=== PATIENT | female | born 1935 | race Caucasian/White ===

== ENCOUNTER 2018-06-18 19:39 | Inpatient (IN) | payer OTHER, MEDICAID ==
[~2018-06-18] VITALS: Ht 160 cm; Wt 68.2 kg
[2018-06-18 19:48] VITALS: BP_SYST 114
[2018-06-18] MEDS ORDERED: NACL 0.9% 1,000 ML IV ONE (19:57)
[2018-06-18 20:32] LABS: ANION GAP 11 (5-15); CALCIUM 9.5 mg/dL (8.4-11.0); CHLORIDE 100 mmol/L (98-107); CREATININE 0.99 mg/dL (0.55-1.30); GLUCOSE 110 mg/dL (70-99); POTASSIUM 3.6 mmol/L (3.5-5.1); SODIUM SERUM 143 mmol/L (136-145); UREA NITROGEN, BLOOD 22 mg/dL (8-21)
[2018-06-18 20:34] LABS: WHITE BLOOD COUNT (AUTO) 11.7 K/uL (4.8-10.8)
[2018-06-18 20:35] LABS: HEMATOCRIT 40.9 % (36-48); HEMOGLOBIN 13.2 g/dL (12.0-16.0); LYMPHOCYTES % (AUTO) 22.1 % (20.5-51.5); MEAN CORPUSCULAR HEMOGLOBIN 28 pg (27-31); MEAN CORPUSCULAR HGB CONC 32 % (32-36); MEAN CORPUSCULAR VOLUME 88 fL (79.0-98.0); PLATELET COUNT (AUTO) 279 K/uL (130-430); RED BLOOD CELL COUNT(AUTO) 4.67 MIL/uL (4.2-6.2); RED CELL DISTRIBUTION WIDTH 18.8 % (9.0-15.0)
[2018-06-18 20:36] LABS: BASOPHILS # (AUTO) 0.1 K/uL (0.0-0.2); BASOPHILS % (AUTO) 0.7 % (0.0-2.0); EOSINOPHILS # (AUTO) 0.2 K/uL (0.0-0.4); EOSINOPHILS % (AUTO) 1.9 % (0.0-4.0); LYMPHOCYTES # (AUTO) 2.6 K/uL (1.0-5.5); MONOCYTES # (AUTO) 0.6 K/uL (0.0-1.0); MONOCYTES % (AUTO) 5.3 % (1.7-9.3); NEUTROPHILS # (AUTO) 8.2 K/uL (1.8-7.7)
[2018-06-18 20:37] LABS: ALANINE AMINOTRANSFERASE 22 U/L (12-78); ALBUMIN 3.2 g/dL (3.4-4.8); ASPARTATE AMINOTRANSFERASE 19 U/L (10-37); TOTAL BILIRUBIN 0.5 mg/dL (0.0-1.0)
[2018-06-18] MEDS ORDERED: ALEN70TA3 PO (21:25)
[2018-06-18] MEDS ORDERED: ASPI-1153 PO (21:26)
[2018-06-18] MEDS ORDERED: ATOR20TA64 PO (21:27)
[2018-06-18] MEDS ORDERED: CRAN250T2 PO (21:28)
[2018-06-18] MEDS ORDERED: DIGO-31 PO (21:28)
[2018-06-18] MEDS ORDERED: LEVO137T2 PO (21:30)
[2018-06-18] MEDS ORDERED: ENAL2.5T PO (21:30)
[2018-06-18] MEDS ORDERED: POLY17PO4 PO (21:31)
[2018-06-18] MEDS ORDERED: RIVA15TA PO (21:34)
[2018-06-18] MEDS ORDERED: CARV3.1246 PO (21:36)
[2018-06-18 21:37] LABS: DIGOXIN 1.1 ng/mL (0.80-2.00); THYROID STIMULATING HORMONE 9.95 uIu/mL (0.34-4.82)
[2018-06-18] MEDS ORDERED: DOCU250C14 PO (21:37)
[2018-06-18] MEDS ORDERED: FURO-149 PO (21:37)
[2018-06-18 21:38] LABS: INR 1.5 (0.8-1.2); PROTHROMBIN TIME 15.1 SECS (9.5-12.5)
[2018-06-18] MEDS ORDERED: LEVE500T9 PO (21:39)
[2018-06-18] MEDS ORDERED: METF-833 PO (21:40)
[2018-06-18] MEDS ORDERED: CALC-939 PO (21:43)
[2018-06-18] MEDS ORDERED: RANI150T8 PO (21:46)
[2018-06-18 21:47] LABS: BILIRUBIN,URINE NEGATIVE (NEGATIVE); BLOOD, URINE NEGATIVE (NEGATIVE); CLARITY/URINE CLEAR (CLEAR); COLOR,URINE YELLOW (YELLOW); GLUCOSE,URINE NEGATIVE (NEGATIVE); KETONES,URINE NEGATIVE (NEGATIVE); LEUKOCYTE ESTERASE ,URINE NEGATIVE (NEGATIVE); NITRITE, URINE NEGATIVE (NEGATIVE); PROTEIN URINE NEGATIVE (NEGATIVE); UROBILINOGEN,URINE 0.2 (0.2-1.0)
[2018-06-18] MEDS ORDERED: WHEA98PO PO (21:47)
[2018-06-18] MEDS ORDERED: BISA10SU61 RC (21:48)
[2018-06-18] MEDS ORDERED: NA P133E41 RC (21:49)
[2018-06-18] MEDS ORDERED: MOM PO (21:50)
[2018-06-18] MEDS ORDERED: ACET325C3 PO (21:52)
[2018-06-18 21:54] LABS: BARBITURATE, URINE NEGATIVE (NEG <=200); BENZODIAZEPINE, URINE NEGATIVE (NEG <=150); CANNABINOID, URINE NEGATIVE (NEG <=50); COCAINE, URINE NEGATIVE (NEG <=150); METHAMPHETAMINES SCREEN,URINE NEGATIVE (NEG <=500); OPIATE, URINE NEGATIVE (NEG <=100); PHENCYCLIDINE SCREEN,URINE NEGATIVE (NEG <=25); UR TRICYCLIC ANTIDEPRESSANTS NEGATIVE (NEG <=300); URINE AMPHETAMINE NEGATIVE (NEG <=500); URINE METHADONE NEGATIVE (NEG <=200); URINE OXYCODONE SCREEN NEGATIVE (NEG <=100); URINE PROPOXYPHENE SCREEN NEGATIVE (NEG <=300)
[2018-06-18] MEDS ORDERED: MORPHINE 4 MG/ML INJ. SYRINGE IVP PRN ×2 (22:00)
[2018-06-18] MEDS ORDERED: ONDANSETRON HCL 4 MG/2 ML VIAL IVP PRN (22:00)
[2018-06-18] MEDS ORDERED: DEXTROSE 50% JECT 50 ML DISP.SYRIN IVP PRN (22:00)
[2018-06-18] MEDS ORDERED: LORazepam 2 MG/ML VIAL IVP PRN (22:00)
[2018-06-18] MEDS ORDERED: MUPIROCIN 2% TOPICAL OINTMENT 22 GM NS PRN (22:00)
[2018-06-18] MEDS ORDERED: DOCUSATE SODIUM 100 MG CAPSULE PO PRN (22:00)
[2018-06-18] MEDS ORDERED: ACETAMINOPHEN 325 MG TABLET PO PRN (22:00)
[2018-06-18 22:11] LABS: RBC,URINE NONE SEEN /HPF (0-3); WBC,URINE 0-3 /HPF (0-3)
[2018-06-18 22:12] LABS: BACTERIA,URINE FEW /HPF (None Seen)
[2018-06-18 22:13] LABS: FINE GRANULAR CASTS,URINE 0-10 /LPF (None Seen); HYALINE CASTS, URINE 0-10 /LPF (None Seen); MUCUS,URINE None Seen /LPF (None Seen)
[2018-06-18 22:45] VITALS: BP_SYST 138
[2018-06-18] MEDS: D5NS 1,000 ML IV SCH (23:50)
[2018-06-19 00:07] VITALS: BP_SYST 138
[2018-06-19 06:41] LABS: ANION GAP 8 (5-15); CHLORIDE 103 mmol/L (98-107); CREATININE 0.83 mg/dL (0.55-1.30); GLUCOSE 157 mg/dL (70-99); POTASSIUM 3.2 mmol/L (3.5-5.1); SODIUM SERUM 145 mmol/L (136-145); UREA NITROGEN, BLOOD 18 mg/dL (8-21)
[2018-06-19] MEDS: LEVOTHYROXINE SODIUM 0.137 MG TABLET PO SCH (07:00)
[2018-06-19 07:02] LABS: HEMATOCRIT 38.9 % (36-48); HEMOGLOBIN 12.4 g/dL (12.0-16.0); MEAN CORPUSCULAR HEMOGLOBIN 28 pg (27-31); MEAN CORPUSCULAR HGB CONC 32 % (32-36); MEAN CORPUSCULAR VOLUME 88 fL (79.0-98.0); RED BLOOD CELL COUNT(AUTO) 4.43 MIL/uL (4.2-6.2); RED CELL DISTRIBUTION WIDTH 18.5 % (9.0-15.0); WHITE BLOOD COUNT (AUTO) 10.8 K/uL (4.8-10.8)
[2018-06-19 07:03] LABS: BASOPHILS % (AUTO) 0.4 % (0.0-2.0); EOSINOPHILS # (AUTO) 0.2 K/uL (0.0-0.4); EOSINOPHILS % (AUTO) 1.9 % (0.0-4.0); LYMPHOCYTES % (AUTO) 18.1 % (20.5-51.5); MONOCYTES # (AUTO) 0.7 K/uL (0.0-1.0); MONOCYTES % (AUTO) 6.7 % (1.7-9.3); NEUTROPHILS # (AUTO) 7.9 K/uL (1.8-7.7); NEUTROPHILS % (AUTO) 72.9 % (40.0-70.0); PLATELET COUNT (AUTO) 266 K/uL (130-430)
[2018-06-19 08:16] VITALS: BP_SYST 156
[2018-06-19] MEDS: POTASSIUM CHLORIDE 20 MEQ TAB.PRT.SR PO PRN (08:27)
[2018-06-19] MEDS: levETIRAcetam 500 MG TABLET PO SCH ×2 (08:27→21:03)
[2018-06-19] MEDS: DIGOXIN 0.125 MG TABLET PO SCH (08:28)
[2018-06-19] MEDS: ASPIRIN 81 MG TABLET(ECOTRIN) PO SCH (08:28)
[2018-06-19] MEDS: RIVAROXABAN 15 MG TABLET PO SCH (08:29)
[2018-06-19] MEDS ORDERED: LEVETIRACETAM PO SCH (09:00)
[2018-06-19] MEDS: MAGNESIUM SULFATE 50 ML IV PRN (10:19)
[2018-06-19] MEDS: D5NS 1,000 ML IV SCH ×2 (11:32→15:06)
[2018-06-19 12:11] VITALS: BP_SYST 145
[2018-06-19] MEDS: INSULIN LISPRO SLIDING SCALE 100 UNITS/ML VIAL (humaLOG) SUBCUT PRN ×2 (16:37→21:08)
[2018-06-19 16:47] VITALS: BP_SYST 147
[2018-06-19 20:00] VITALS: BP_SYST 150
[2018-06-19] MEDS: ATORVASTATIN 20 MG TABLET PO SCH (21:03)
[2018-06-20 00:04] VITALS: BP_SYST 143
[2018-06-20] MEDS: D5NS 1,000 ML IV SCH ×2 (05:10→17:00)
[2018-06-20] MEDS: LEVOTHYROXINE SODIUM 0.137 MG TABLET PO SCH (06:01)
[2018-06-20] MEDS: INSULIN LISPRO SLIDING SCALE 100 UNITS/ML VIAL (humaLOG) SUBCUT PRN ×4 (06:03→21:43)
[2018-06-20 07:47] LABS: HEMOGLOBIN 12.7 g/dL (12.0-16.0); RED BLOOD CELL COUNT(AUTO) 4.49 MIL/uL (4.2-6.2); WHITE BLOOD COUNT (AUTO) 11.5 K/uL (4.8-10.8)
[2018-06-20 07:48] LABS: BASOPHILS % (AUTO) 0.4 % (0.0-2.0); EOSINOPHILS # (AUTO) 0.2 K/uL (0.0-0.4); EOSINOPHILS % (AUTO) 1.8 % (0.0-4.0); HEMATOCRIT 39.1 % (36-48); LYMPHOCYTES # (AUTO) 1.4 K/uL (1.0-5.5); MEAN CORPUSCULAR HEMOGLOBIN 28 pg (27-31); MEAN CORPUSCULAR HGB CONC 32 % (32-36); MEAN CORPUSCULAR VOLUME 87 fL (79.0-98.0); MONOCYTES # (AUTO) 0.7 K/uL (0.0-1.0); MONOCYTES % (AUTO) 6.5 % (1.7-9.3); NEUTROPHILS # (AUTO) 9.1 K/uL (1.8-7.7); NEUTROPHILS % (AUTO) 79.3 % (40.0-70.0); PLATELET COUNT (AUTO) 291 K/uL (130-430); RED CELL DISTRIBUTION WIDTH 18.6 % (9.0-15.0)
[2018-06-20 08:08] LABS: ANION GAP 9 (5-15); CALCIUM 8.7 mg/dL (8.4-11.0); CHLORIDE 104 mmol/L (98-107); CREATININE 0.67 mg/dL (0.55-1.30); GLUCOSE 184 mg/dL (70-99); POTASSIUM 3.3 mmol/L (3.5-5.1); SODIUM SERUM 143 mmol/L (136-145); UREA NITROGEN, BLOOD 9 mg/dL (8-21)
[2018-06-20] MEDS: POTASSIUM CHLORIDE 20 MEQ TAB.PRT.SR PO PRN (08:24)
[2018-06-20] MEDS: ASPIRIN 81 MG TABLET(ECOTRIN) PO SCH (08:24)
[2018-06-20] MEDS: RIVAROXABAN 15 MG TABLET PO SCH (08:24)
[2018-06-20] MEDS: levETIRAcetam 500 MG TABLET PO SCH ×2 (08:25→21:40)
[2018-06-20] MEDS: MAGNESIUM SULFATE 50 ML IV PRN (08:31)
[2018-06-20] MEDS: DIGOXIN 0.125 MG TABLET PO SCH (08:31)
[2018-06-20 08:38] VITALS: BP_SYST 146
[2018-06-20] MEDS: CARVEDILOL 12.5 MG TABLET (COREG) PO SCH ×2 (11:30→21:40)
[2018-06-20 12:05] VITALS: BP_SYST 137
[2018-06-20 17:12] VITALS: BP_SYST 125
[2018-06-20 20:00] VITALS: BP_SYST 148
[2018-06-20] MEDS: ATORVASTATIN 20 MG TABLET PO SCH (21:40)
[2018-06-20 23:13] VITALS: BP_SYST 116
[2018-06-21] MEDS ORDERED: LEVOTHYROXINE SODIUM 0.15 MG TABLET PO SCH (07:00)
[2018-06-21 07:40] LABS: ANION GAP 9 (5-15); CALCIUM 7.9 mg/dL (8.4-11.0); CHLORIDE 108 mmol/L (98-107); GLUCOSE 175 mg/dL (70-99); POTASSIUM 3.9 mmol/L (3.5-5.1); SODIUM SERUM 144 mmol/L (136-145); UREA NITROGEN, BLOOD 11 mg/dL (8-21)
[2018-06-21 08:20] LABS: HEMATOCRIT 34.7 % (36-48); HEMOGLOBIN 11.1 g/dL (12.0-16.0); MEAN CORPUSCULAR HEMOGLOBIN 28 pg (27-31); MEAN CORPUSCULAR HGB CONC 32 % (32-36); MEAN CORPUSCULAR VOLUME 88 fL (79.0-98.0); PLATELET COUNT (AUTO) 267 K/uL (130-430); RED BLOOD CELL COUNT(AUTO) 3.95 MIL/uL (4.2-6.2); RED CELL DISTRIBUTION WIDTH 18.7 % (9.0-15.0); WHITE BLOOD COUNT (AUTO) 11.1 K/uL (4.8-10.8)
[2018-06-21 08:21] LABS: BASOPHILS % (AUTO) 0.3 % (0.0-2.0); EOSINOPHILS # (AUTO) 0.2 K/uL (0.0-0.4); LYMPHOCYTES # (AUTO) 1.6 K/uL (1.0-5.5); LYMPHOCYTES % (AUTO) 14.6 % (20.5-51.5); MONOCYTES # (AUTO) 0.8 K/uL (0.0-1.0); MONOCYTES % (AUTO) 6.9 % (1.7-9.3); NEUTROPHILS # (AUTO) 8.5 K/uL (1.8-7.7); NEUTROPHILS % (AUTO) 76.2 % (40.0-70.0)
[2018-06-21 12:00] VITALS: BP_SYST 145
[2018-06-21] MEDS: INSULIN LISPRO SLIDING SCALE 100 UNITS/ML VIAL (humaLOG) SUBCUT PRN ×2 (13:14→18:11)
[2018-06-21 15:50] VITALS: BP_SYST 147
[2018-06-21 16:37] VITALS: BP_SYST 123
== END 2018-06-21 19:15 | disposition home or self-care (01) | DRG 71 ==
LOC: SED 19:39 → STU 21:53
PROVIDERS: ADMIT General Practice; ATTEND General Practice
DX: G93.41 Metabolic encephalopathy (principal); E44.1 Mild protein-calorie malnutrition; E87.6 Hypokalemia; E83.42 Hypomagnesemia; F02.80 Dementia in other diseases classified elsewhere, unspecified severity, without behavioral disturbance, psychotic disturbance, mood disturbance, and anxiety; G30.9 Alzheimer's disease, unspecified; I50.9 Heart failure, unspecified; I11.0 Hypertensive heart disease with heart failure; E11.9 Type 2 diabetes mellitus without complications; G40.909 Epilepsy, unspecified, not intractable, without status epilepticus; I48.91 Unspecified atrial fibrillation; D64.9 Anemia, unspecified; M81.0 Age-related osteoporosis without current pathological fracture; F20.9 Schizophrenia, unspecified; E78.5 Hyperlipidemia, unspecified; E03.9 Hypothyroidism, unspecified; I48.2 Chronic atrial fibrillation; Z79.899 Other long term (current) drug therapy; Z79.82 Long term (current) use of aspirin
CPT/HCPCS: 36415; 70450-TC; 71045; 80048; 80053; 80162-TC; 80164-TC; 80307; 81000-TC; 82962; 83036; 83605; 83735-TC; 83880; 84443-TC; 84484; 85025; 85610-TC; 85730-TC; 87040-TC; 87081; 87086; 93005; 96360; 96361; 97110-GP; 97116-GP; 97530-GP; 99285; G0378; J3475; J7030; J7042